=== PATIENT | female | born 1950 | race African-American/Black ===

== ENCOUNTER 2023-01-21 10:53 | Inpatient (IN) | payer OTHER ==
[2023-01-21] MEDS ORDERED: LABETALOL HCL 5 MG/1 ML (100MG/20 ML VIAL) IVPUSH ONE (12:07)
[2023-01-21] MEDS ORDERED: LABETALOL HCL 20 MG/4 ML VIAL ONE (12:16)
[2023-01-21 12:28] LABS: BASO % 0.5 % (0-2.0); EOS % 0.3 % (0-4.5); HEMATOCRIT 43.1 % (32.4-45.2); HEMOGLOBIN 14.6 GM/dL (10.7-15.3); LYMPH % 14.1 % (8-40); MCH 26.5 pg (25.7-33.7); MEAN CELL VOLUME 77.9 fl (80-96); MEAN PLT VOLUME 8.3 fl (7.5-11.1); MONO % 4.4 % (3.8-10.2); NEUT % 80.7 % (42.8-82.8); PLATELET COUNT 346 10^3/uL (134-434); RBC 5.53 M/mm3 (3.60-5.2); RDW 15.9 % (11.6-15.6); WHITE BLOOD COUNT 13.8 K/mm3 (4.0-10.0)
[2023-01-21 12:33] LABS: EPI CELLS 11 /uL (0-25.1); HYALINE CASTS 1 /uL (0-3.1); PH,URINE 5.5 (5.0-8.0); URINE APPEARANCE CLOUDY; URINE BACTERIA 614 /uL (0-1359); URINE BILIRUBIN NEGATIVE (NEGATIVE); URINE COLOR YELLOW; URINE GLUCOSE (UA) NEGATIVE (NEGATIVE); URINE KETONE NEGATIVE (NEGATIVE); URINE LEUK ESTERASE NEGATIVE (NEGATIVE); URINE NITRITE NEGATIVE (NEGATIVE); URINE PROTEIN 2+ (NEGATIVE); URINE RBC 27 /uL (0-23.9); URINE WBC 20 /uL (0-25.8)
[2023-01-21 12:41] LABS: INR 1.1 (0.83-1.09); PROTHROMBIN TIME (PATIENT) 12.7 SEC (9.7-13.0)
[2023-01-21 12:43] LABS: ACTIVATED PTT 27.5 SECONDS (25.2-36.5)
[2023-01-21 12:49] LABS: CHLORIDE 106 mmol/L (98-107); SODIUM 132 mmol/L (136-145)
[2023-01-21 12:51] LABS: BLOOD UREA NITROGEN 18.8 mg/dL (7-18); CALCIUM 8.7 mg/dL (8.5-10.1)
[2023-01-21 12:52] LABS: ALBUMIN 3.2 g/dl (3.4-5.0); CO2 28 mmol/L (21-32); GLUCOSE,RANDOM 109 mg/dL (74-106)
[2023-01-21 12:55] LABS: SGOT/AST 51 U/L (15-37); SGPT/ALT 19 U/L (13-61)
[2023-01-21 12:56] LABS: BILIRUBIN,TOTAL 0.7 mg/dL (0.2-1); TOT PROT 8.7 g/dl (6.4-8.2)
[2023-01-21 12:58] LABS: ALK PHOS 84 U/L (45-117)
[2023-01-21 13:04] LABS: ANION GAP -2 mmol/L (4-13); POTASSIUM 6.4 mmol/L (3.5-5.1)
[2023-01-21] MEDS ORDERED: LABETALOL HCL 200 MG TABLET (FP) PO ONE (13:25)
[2023-01-21] MEDS ORDERED: LABETALOL HCL 100 MG TABLET (FP) ONE (13:41)
[2023-01-21] MEDS ORDERED: TRIMETHOBENZAMIDE HCL 200MG/2ML INJ IM ONE ×2 (14:22→14:29)
[2023-01-21 15:29] LABS: POTASSIUM 3.5 mmol/L (3.5-5.1)
[2023-01-21 15:31] LABS: CALCIUM 8.4 mg/dL (8.5-10.1)
[2023-01-21 15:32] LABS: ALBUMIN 3.1 g/dl (3.4-5.0); BLOOD UREA NITROGEN 18.5 mg/dL (7-18); MAGNESIUM 2.1 mg/dL (1.8-2.4)
[2023-01-21 15:36] LABS: BILIRUBIN,TOTAL 0.6 mg/dL (0.2-1); TOT PROT 7.4 g/dl (6.4-8.2)
[2023-01-21 15:52] LABS: CREATININE 0.8 mg/dL (0.55-1.3)
[2023-01-22] MEDS ORDERED: hydrALAZINE HCL 20 MG/ML VIAL IVPUSH ONE (05:40)
[2023-01-22] MEDS ORDERED: hydrALAZINE HCL 20 MG/ML VIAL IVPUSH PRN (05:42)
[2023-01-22] MEDS ORDERED: LISINOPRIL 20 MG TABLET PO ONE (05:43)
[2023-01-22 07:44] LABS: BASO % 0.3 % (0-2.0); EOS % 0.2 % (0-4.5); HEMATOCRIT 38.8 % (32.4-45.2); LYMPH % 15.1 % (8-40); MCHC 33.4 g/dl (32.0-36.0); MEAN CELL VOLUME 77.8 fl (80-96); MEAN PLT VOLUME 8.5 fl (7.5-11.1); MONO % 4.6 % (3.8-10.2); NEUT % 79.8 % (42.8-82.8); PLATELET COUNT 287 10^3/uL (134-434); RBC 4.99 M/mm3 (3.60-5.2); RDW 15.6 % (11.6-15.6)
[2023-01-22 07:50] LABS: POTASSIUM 3.6 mmol/L (3.5-5.1)
[2023-01-22 07:54] LABS: CALCIUM 8.7 mg/dL (8.5-10.1)
[2023-01-22 07:55] LABS: ALBUMIN 3.2 g/dl (3.4-5.0); BLOOD UREA NITROGEN 20.4 mg/dL (7-18); MAGNESIUM 2.2 mg/dL (1.8-2.4)
[2023-01-22 07:58] LABS: CREATININE 0.8 mg/dL (0.55-1.3); PHOSPHOROUS 3.6 mg/dL (2.5-4.9)
[2023-01-22 07:59] LABS: BILIRUBIN,TOTAL 0.8 mg/dL (0.2-1)
[2023-01-22 08:00] LABS: TOT PROT 7.5 g/dl (6.4-8.2)
[2023-01-22] MEDS: amLODIPine BESYLATE 10 MG TABLET (FP) PO SCH (09:11)
[2023-01-22] MEDS: ENOXAPARIN NA (PORCINE) 40 MG/0.4 ML DISP.SYRIN SQ SCH (09:12)
[2023-01-22] MEDS ORDERED: hydrALAZINE HCL 20 MG/ML VIAL ONE (12:48)
[2023-01-22 23:36] VITALS: BMI 37.8
[2023-01-23 09:38] LABS: EOS % 0.6 % (0-4.5); HEMATOCRIT 37.9 % (32.4-45.2); HEMOGLOBIN 13.2 GM/dL (10.7-15.3); LYMPH % 22.4 % (8-40); MCH 26.9 pg (25.7-33.7); MCHC 34.7 g/dl (32.0-36.0); MEAN CELL VOLUME 77.6 fl (80-96); MEAN PLT VOLUME 8.6 fl (7.5-11.1); MONO % 5.9 % (3.8-10.2); NEUT % 71.1 % (42.8-82.8); PLATELET COUNT 275 10^3/uL (134-434); RBC 4.88 M/mm3 (3.60-5.2); RDW 15.8 % (11.6-15.6); WHITE BLOOD COUNT 10.7 K/mm3 (4.0-10.0)
[2023-01-23 10:13] LABS: POTASSIUM 3.7 mmol/L (3.5-5.1)
[2023-01-23] MEDS: amLODIPine BESYLATE 10 MG TABLET (FP) PO SCH (10:13)
[2023-01-23] MEDS: ENOXAPARIN NA (PORCINE) 40 MG/0.4 ML DISP.SYRIN SQ SCH (10:17)
[2023-01-23 10:23] LABS: CALCIUM 9.2 mg/dL (8.5-10.1)
[2023-01-23 10:24] LABS: ALBUMIN 3.2 g/dl (3.4-5.0); BLOOD UREA NITROGEN 24.7 mg/dL (7-18)
[2023-01-23 10:26] LABS: CREATININE 1.1 mg/dL (0.55-1.3)
[2023-01-23 10:27] LABS: TOT PROT 7.4 g/dl (6.4-8.2)
[2023-01-23 10:28] LABS: BILIRUBIN,TOTAL 0.7 mg/dL (0.2-1)
[2023-01-23] MEDS: LISINOPRIL 20 MG TABLET PO SCH (14:09)
[2023-01-24] MEDS: ASPIRIN 81 MG CHEWABLE TABLETS PO SCH (09:21)
[2023-01-24] MEDS: amLODIPine BESYLATE 10 MG TABLET (FP) PO SCH (09:21)
[2023-01-24] MEDS: LISINOPRIL 20 MG TABLET PO SCH (09:21)
[2023-01-24] MEDS: ENOXAPARIN NA (PORCINE) 40 MG/0.4 ML DISP.SYRIN SQ SCH ×2 (09:21→09:24)
[2023-01-24 09:37] LABS: BASO % 0.4 % (0-2.0); HEMATOCRIT 39.8 % (32.4-45.2); HEMOGLOBIN 13.3 GM/dL (10.7-15.3); LYMPH % 28.9 % (8-40); MCH 26.2 pg (25.7-33.7); MCHC 33.5 g/dl (32.0-36.0); MEAN CELL VOLUME 78.3 fl (80-96); MEAN PLT VOLUME 8.8 fl (7.5-11.1); MONO % 4.7 % (3.8-10.2); PLATELET COUNT 265 10^3/uL (134-434); RBC 5.08 M/mm3 (3.60-5.2); RDW 15.3 % (11.6-15.6); WHITE BLOOD COUNT 11.6 K/mm3 (4.0-10.0)
[2023-01-24 09:40] LABS: IRON SERUM 75 ug/dL (50-175); TOTAL IRON BINDING CAPACITY 241 ug/dL (250-450)
[2023-01-24 11:52] LABS: INR 1.12 (0.83-1.09)
[2023-01-24 14:08] LABS: ALBUMIN 3.2 g/dl (3.4-5.0); BILIRUBIN,TOTAL 0.8 mg/dL (0.2-1); BLOOD UREA NITROGEN 25.5 mg/dL (7-18); CALCIUM 8.8 mg/dL (8.5-10.1); CREATININE 1.1 mg/dL (0.55-1.3); MAGNESIUM 2.3 mg/dL (1.8-2.4); PHOSPHOROUS 3.8 mg/dL (2.5-4.9); POTASSIUM 3.6 mmol/L (3.5-5.1); TOT PROT 7.4 g/dl (6.4-8.2)
[2023-01-24] MEDS ORDERED: ATORVASTATIN CA 20 MG TABLET (FP) PO SCH (22:00)
[2023-01-25] MEDS: LISINOPRIL 20 MG TABLET PO SCH (09:44)
[2023-01-25] MEDS: ASPIRIN 81 MG CHEWABLE TABLETS PO SCH (09:45)
[2023-01-25] MEDS: amLODIPine BESYLATE 10 MG TABLET (FP) PO SCH (09:45)
[2023-01-25] MEDS ORDERED: HYDROCHLOROTHIAZIDE 12.5 MG CAPSULE (FP) PO SCH (10:00)
[2023-01-25 11:54] VITALS: RESP 18
[2023-01-25 12:21] LABS: BLOOD UREA NITROGEN 22.5 mg/dL (7-18); CALCIUM 9.3 mg/dL (8.5-10.1); CREATININE 0.9 mg/dL (0.55-1.3); POTASSIUM 3.9 mmol/L (3.5-5.1)
[2023-01-25 13:55] LABS: INR 1.11 (0.83-1.09); PROTHROMBIN TIME (PATIENT) 12.9 SEC (9.7-13.0)
[2023-01-25 13:58] LABS: HEMATOCRIT 37.6 % (32.4-45.2); HEMOGLOBIN 12.6 GM/dL (10.7-15.3); MCH 26.4 pg (25.7-33.7); MCHC 33.4 g/dl (32.0-36.0); MEAN CELL VOLUME 78.8 fl (80-96); MEAN PLT VOLUME 8.8 fl (7.5-11.1); PLATELET COUNT 256 10^3/uL (134-434); RBC 4.77 M/mm3 (3.60-5.2); RDW 15.5 % (11.6-15.6); WHITE BLOOD COUNT 11.4 K/mm3 (4.0-10.0)
[2023-01-25 14:54] VITALS: BP 157/87; PULSE 83; TEMP 98.3
== END 2023-01-25 16:32 | disposition home or self-care (01) | DRG 305 ==
LOC: JER 10:53 → JERBED 15:57 → J5S 01-22 21:16 → OBSVTOIN 01-24 08:09
PROVIDERS: ADMIT Internal Medicine; ATTEND Internal Medicine
DX: I16.0 Hypertensive urgency (principal); N63.10 Unspecified lump in the right breast, unspecified quadrant; R42 Dizziness and giddiness; E87.5 Hyperkalemia; R11.2 Nausea with vomiting, unspecified
CPT/HCPCS: 0241U-QW; 36415; 70450-TC; 71045-TC-FY; 71260-TC; 74177-TC; 76642-TC-RT; 80048; 80053; 80061; 81003; 82607; 82728; 82746; 83036; 83540; 83550; 83735; 84100; 84439; 84443; 84484; 85025; 85027; 85610; 85730; 93005; 93010; 93306-TC; 97116-GP; 97161-GP; 99285-25; G0378; Q9967

== ENCOUNTER → 2023-02-10 | Day surgery (SDC) | payer OTHER | END | disposition home or self-care (01) | LOC: JRADUS-SUR 09:34 | PROVIDERS: ATTEND Registered Nurse | PROC: 0H9T3ZX Drainage of Right Breast, Percutaneous Approach, Diagnostic (ICD-10-PCS; principal; 2023-02-10) | DX: C50.911 Malignant neoplasm of unspecified site of right female breast (principal) | CPT/HCPCS: 19083; 19084; 77065-TC; 77066-TC; 87899; A4648; G0279-TC ==

== ENCOUNTER 2023-04-07 04:12 | Day surgery (SDC) | payer OTHER ==
[2023-04-05 10:11] VITALS: BMI 36.9
[2023-04-07] MEDS ORDERED: BENZOIN/ALOE VERA/STORAX/TOLU 58 ML BOTTLE ONE (13:08)
[2023-04-07] MEDS ORDERED: BUPIVACAINE HCL/PF 0.5% (5MG/ML) 10 ML VIAL ONE ×2 (13:08→13:22)
[2023-04-07] MEDS ORDERED: LIDOCAINE 1%/EPI 1:100000 (20 ML MULTI DOSE VIAL) ONE (13:08)
[2023-04-07] MEDS ORDERED: PROPOFOL 40 ML ONE (13:46)
[2023-04-07] MEDS ORDERED: ONDANSETRON 4 MG/2 ML VIAL ONE (13:47)
[2023-04-07] MEDS ORDERED: LIDOCAINE HCL/PF 2% SDV 5ML VIAL ONE (13:47)
[2023-04-07] MEDS ORDERED: DEXAMETHASONE SOD PHOSPHATE 4 MG/1 ML VIAL ONE (13:47)
[2023-04-07] MEDS ORDERED: MIDAZOLAM HCL 2 MG/2 ML SINGLE DOSE VIAL ONE (13:48)
[2023-04-07] MEDS ORDERED: ceFAZolin SODIUM 1 GM VIAL ONE (14:21)
[2023-04-07] MEDS: ceFAZolin SODIUM 1 GM VIAL IVPB ONE (14:22)
[2023-04-07] MEDS: LIDOCAINE 1%/EPI 1:100000 (20 ML MULTI DOSE VIAL) IJ ONE (14:47)
[2023-04-07] MEDS: BUPIVACAINE HCL/PF 0.5% (5MG/ML) 10 ML VIAL IJ ONE (14:47)
[2023-04-07] MEDS ORDERED: ONDANSETRON 4 MG/2 ML VIAL IVPUSH PRN (15:15)
[2023-04-07] MEDS ORDERED: LACTATED RINGERS SOLUTION 1,000 ML IV SCH (15:15)
[2023-04-07 16:48] VITALS: RESP 16
[2023-04-07 17:36] VITALS: BP 185/91; PULSE 71; TEMP 97.6
== END 2023-04-07 17:35 | disposition home or self-care (01) ==
LOC: JASU-SURG 04:12
PROVIDERS: ATTEND Surgery Surgical Oncology
PROC: 0HBT0ZZ Excision of Right Breast, Open Approach (ICD-10-PCS; principal; 2023-04-07 13:30)
DX: C50.911 Malignant neoplasm of unspecified site of right female breast (principal)
CPT/HCPCS: 88307-TC; 94760

== ENCOUNTER 2023-05-02 13:08 | Inpatient (IN) | payer OTHER ==
[2023-05-02] MEDS ORDERED: ONDANSETRON *ODT* 4 MG TABLET ONE (15:20)
[2023-05-02 15:24] LABS: HEMATOCRIT 34.6 % (32.4-45.2); HEMOGLOBIN 11.7 GM/dL (10.7-15.3); MCH 26.9 pg (25.7-33.7); MCHC 33.7 g/dl (32.0-36.0); MEAN CELL VOLUME 79.8 fl (80-96); MEAN PLT VOLUME 8.2 fl (7.5-11.1); PLATELET COUNT 325 10^3/uL (134-434); RBC 4.34 M/mm3 (3.60-5.2); RDW 14.6 % (11.6-15.6); WHITE BLOOD COUNT 15.6 K/mm3 (4.0-10.0)
[2023-05-02] MEDS: ONDANSETRON 4 MG/2 ML VIAL IVPB ONE (16:00)
[2023-05-02] MEDS ORDERED: ONDANSETRON 4 MG/2 ML VIAL ONE ×2 (16:14→22:23)
[2023-05-02] MEDS ORDERED: morphine SULFATE 4 MG/ML VIAL ONE (16:14)
[2023-05-02 16:19] LABS: BASO % 0.1 % (0-2.0); EOS % 0.1 % (0-4.5); HEMATOCRIT 35.8 % (32.4-45.2); HEMOGLOBIN 12.1 GM/dL (10.7-15.3); MCH 26.8 pg (25.7-33.7); MCHC 33.8 g/dl (32.0-36.0); MEAN CELL VOLUME 79.5 fl (80-96); MEAN PLT VOLUME 8.3 fl (7.5-11.1); MONO % 2.2 % (3.8-10.2); NEUT % 90.6 % (42.8-82.8); PLATELET COUNT 327 10^3/uL (134-434); RDW 14.6 % (11.6-15.6); WHITE BLOOD COUNT 15.8 K/mm3 (4.0-10.0)
[2023-05-02] MEDS: ONDANSETRON 4 MG/2 ML VIAL IVPUSH ONE ×2 (16:31→22:35)
[2023-05-02] MEDS: morphine CARPU-JECT 4 MG/1 ML DISP.SYRIN IVPUSH ONE (16:31)
[2023-05-02 16:36] LABS: POTASSIUM 5.1 mmol/L (3.5-5.1)
[2023-05-02 16:38] LABS: CALCIUM 9.6 mg/dL (8.5-10.1)
[2023-05-02] MEDS: SODIUM CHLORIDE 0.9% 500 ML INFUS.BAG IV ONE (16:38)
[2023-05-02 16:39] LABS: ALBUMIN 3.4 g/dl (3.4-5.0); BLOOD UREA NITROGEN 15.4 mg/dL (7-18)
[2023-05-02 16:42] LABS: CREATININE 0.9 mg/dL (0.55-1.3)
[2023-05-02 16:43] LABS: BILIRUBIN,TOTAL 0.6 mg/dL (0.2-1); TOT PROT 8.7 g/dl (6.4-8.2)
[2023-05-02 16:45] LABS: ANISOCYTOSIS 0; MACROCYTOSIS 0
[2023-05-02] MEDS ORDERED: LISINOPRIL 20 MG TABLET ONE (20:55)
[2023-05-02] MEDS: LISINOPRIL 20 MG TABLET PO ONE (21:01)
[2023-05-02 21:12] LABS: EPI CELLS 4 /uL (0-25.1); HYALINE CASTS 0 /uL (0-3.1); URINE APPEARANCE CLEAR; URINE BACTERIA 147 /uL (0-1359); URINE BILIRUBIN NEGATIVE (NEGATIVE); URINE COLOR YELLOW; URINE GLUCOSE (UA) NEGATIVE (NEGATIVE); URINE KETONE NEGATIVE (NEGATIVE); URINE LEUK ESTERASE NEGATIVE (NEGATIVE); URINE NITRITE NEGATIVE (NEGATIVE); URINE PROTEIN 1+ (NEGATIVE); URINE RBC 39 /uL (0-23.9); URINE UROBILINOGEN 0.2 mg/dL (0.2-1.0); URINE WBC 1 /uL (0-25.8)
[2023-05-03] MEDS: DEXTROSE 5%-0.45% SALINE 1,000 ML IV SCH (02:47)
[2023-05-03] MEDS: CEFTRIAXONE 1 GM in DEXTROSE 5%-WATER - 50 ML IVPB ONE (03:37)
[2023-05-03] MEDS: INSULIN ASPART SLIDING SCALE (NOVOLOG) 1 VIAL SQ SCH (07:06)
[2023-05-03 08:38] LABS: BASO % 0.1 % (0-2.0); EOS % 0.1 % (0-4.5); HEMATOCRIT 31.8 % (32.4-45.2); HEMOGLOBIN 11.1 GM/dL (10.7-15.3); LYMPH % 10.4 % (8-40); MCH 27.6 pg (25.7-33.7); MCHC 34.9 g/dl (32.0-36.0); MEAN CELL VOLUME 79.1 fl (80-96); MEAN PLT VOLUME 8.1 fl (7.5-11.1); MONO % 4.3 % (3.8-10.2); NEUT % 85.1 % (42.8-82.8); PLATELET COUNT 321 10^3/uL (134-434); RBC 4.03 M/mm3 (3.60-5.2); RDW 14.4 % (11.6-15.6); WHITE BLOOD COUNT 13.8 K/mm3 (4.0-10.0)
[2023-05-03 09:07] LABS: POTASSIUM 3.7 mmol/L (3.5-5.1)
[2023-05-03] MEDS: TRIMETHOBENZAMIDE HCL 200MG/2ML INJ IM PRN (09:07)
[2023-05-03] MEDS: NIFEdipine E.R. 30 MG TABLET PO SCH (09:09)
[2023-05-03] MEDS: ENOXAPARIN NA (PORCINE) 40 MG/0.4 ML DISP.SYRIN SQ SCH (09:10)
[2023-05-03] MEDS: LISINOPRIL 20 MG TABLET PO SCH (09:10)
[2023-05-03] MEDS: HYDROCHLOROTHIAZIDE 12.5 MG CAPSULE (FP) PO SCH (09:10)
[2023-05-03 09:20] LABS: BLOOD UREA NITROGEN 13.8 mg/dL (7-18); CALCIUM 9.4 mg/dL (8.5-10.1); MAGNESIUM 2.1 mg/dL (1.8-2.4)
[2023-05-03 09:23] LABS: CREATININE 0.8 mg/dL (0.55-1.3)
[2023-05-03 09:24] LABS: PHOSPHOROUS 3.6 mg/dL (2.5-4.9)
[2023-05-03 09:25] LABS: BILIRUBIN,TOTAL 0.4 mg/dL (0.2-1); TOT PROT 7.7 g/dl (6.4-8.2)
[2023-05-03] MEDS ORDERED: NIFEdipine E.R. 30 MG TABLET PO SCH (10:00)
[2023-05-03] MEDS: POLYETHYLENE GLYCOL (HEALTHYLAX) 3350 17 GM PACKET PO SCH (10:31)
[2023-05-03] MEDS: PANTOPRAZOLE SODIUM 40 MG VIAL IVPUSH SCH (15:49)
[2023-05-03] MEDS: METOCLOPRAMIDE HCL INJECTION 10 MG/2 ML VIAL IVPUSH PRN (16:38)
[2023-05-03] MEDS: LACTATED RINGERS SOLUTION 1,000 ML/1,000 ML INFUS.BAG IV SCH (19:51)
[2023-05-03] MEDS: ASPIRIN 325 MG TABLET PO ONE (20:23)
[2023-05-03] MEDS: ASPIRIN 325 MG ENTERIC COATED TABLET (FP) PO ONE (20:23)
[2023-05-03] MEDS: ATORVASTATIN CA 80 MG TABLET (FP) PO SCH (22:32)
[2023-05-04 08:16] LABS: BASO % 0.6 % (0-2.0); EOS % 0.5 % (0-4.5); HEMATOCRIT 33.7 % (32.4-45.2); HEMOGLOBIN 11.5 GM/dL (10.7-15.3); LYMPH % 17.2 % (8-40); MCHC 34.2 g/dl (32.0-36.0); MEAN PLT VOLUME 8.2 fl (7.5-11.1); MONO % 4.4 % (3.8-10.2); NEUT % 77.3 % (42.8-82.8); PLATELET COUNT 318 10^3/uL (134-434); RBC 4.27 M/mm3 (3.60-5.2); RDW 14.5 % (11.6-15.6); WHITE BLOOD COUNT 12.6 K/mm3 (4.0-10.0)
[2023-05-04 08:33] LABS: POTASSIUM 3.5 mmol/L (3.5-5.1)
[2023-05-04 08:39] LABS: MAGNESIUM 1.9 mg/dL (1.8-2.4)
[2023-05-04 08:40] LABS: CALCIUM 9.6 mg/dL (8.5-10.1); CREATININE 0.8 mg/dL (0.55-1.3)
[2023-05-04 08:41] LABS: BLOOD UREA NITROGEN 11.9 mg/dL (7-18)
[2023-05-04 08:42] LABS: TOT PROT 7.6 g/dl (6.4-8.2)
[2023-05-04 08:45] LABS: BILIRUBIN,TOTAL 0.6 mg/dL (0.2-1)
[2023-05-04] MEDS: ASPIRIN COATED 81 MG TABLET.EC PO SCH (09:25)
[2023-05-04] MEDS: AMPICILLIN NA/SULBACTAM NA 3 GM in DEXTROSE 5%-WATER 100 ML IVPB SCH (18:47)
[2023-05-04] MEDS: CLOPIDOGREL BISULFATE 75 MG TABLET (FP) PO SCH (22:27)
[2023-05-05 07:36] LABS: HEMATOCRIT 34.3 % (32.4-45.2); HEMOGLOBIN 11.6 GM/dL (10.7-15.3); MCHC 33.7 g/dl (32.0-36.0); MEAN CELL VOLUME 79.9 fl (80-96); MEAN PLT VOLUME 8.1 fl (7.5-11.1); PLATELET COUNT 324 10^3/uL (134-434); RBC 4.29 M/mm3 (3.60-5.2); RDW 14.2 % (11.6-15.6); WHITE BLOOD COUNT 12.1 K/mm3 (4.0-10.0)
[2023-05-05 07:48] LABS: POTASSIUM 3.4 mmol/L (3.5-5.1)
[2023-05-05 08:01] LABS: BLOOD UREA NITROGEN 14.3 mg/dL (7-18); MAGNESIUM 2.2 mg/dL (1.8-2.4)
[2023-05-05 08:03] LABS: CALCIUM 9.3 mg/dL (8.5-10.1)
[2023-05-05 08:04] LABS: CREATININE 0.8 mg/dL (0.55-1.3); PHOSPHOROUS 3.4 mg/dL (2.5-4.9); TOT PROT 7.5 g/dl (6.4-8.2)
[2023-05-05 08:05] LABS: BILIRUBIN,TOTAL 0.7 mg/dL (0.2-1)
[2023-05-05] MEDS: amLODIPine BESYLATE 10 MG TABLET (FP) PO SCH (09:57)
[2023-05-05] MEDS: ASPIRIN COATED 81 MG TABLET.EC PO SCH (09:57)
[2023-05-05] MEDS: POTASSIUM CHLORIDE ORAL LIQUID 20 MEQ/15 ML PO ONE (16:04)
[2023-05-06 07:20] LABS: HEMATOCRIT 34.3 % (32.4-45.2); HEMOGLOBIN 11.9 GM/dL (10.7-15.3); MCH 27.5 pg (25.7-33.7); MCHC 34.8 g/dl (32.0-36.0); MEAN CELL VOLUME 79.1 fl (80-96); PLATELET COUNT 299 10^3/uL (134-434); RBC 4.34 M/mm3 (3.60-5.2); RDW 14.3 % (11.6-15.6)
[2023-05-06 07:40] LABS: POTASSIUM 3.6 mmol/L (3.5-5.1)
[2023-05-06 07:46] LABS: ALBUMIN 2.8 g/dl (3.4-5.0); CALCIUM 9.1 mg/dL (8.5-10.1)
[2023-05-06 07:47] LABS: BLOOD UREA NITROGEN 19.6 mg/dL (7-18); MAGNESIUM 2.1 mg/dL (1.8-2.4)
[2023-05-06 07:50] LABS: PHOSPHOROUS 3.7 mg/dL (2.5-4.9)
[2023-05-06 07:51] LABS: BILIRUBIN,TOTAL 0.7 mg/dL (0.2-1); TOT PROT 7.4 g/dl (6.4-8.2)
[2023-05-06] MEDS: HYDROCHLOROTHIAZIDE 25 MG TABLET (FP) PO SCH (10:59)
[2023-05-06] MEDS: ONDANSETRON 4 MG/2 ML VIAL IVPUSH ONE (11:10)
[2023-05-06] MEDS: HYDROCHLOROTHIAZIDE 50 MG TABLET PO SCH (15:30)
[2023-05-06 15:42] VITALS: BMI 33.8
[2023-05-07 07:12] LABS: HEMATOCRIT 36.3 % (32.4-45.2); HEMOGLOBIN 12.1 GM/dL (10.7-15.3); MCH 26.8 pg (25.7-33.7); MCHC 33.3 g/dl (32.0-36.0); MEAN CELL VOLUME 80.7 fl (80-96); MEAN PLT VOLUME 8.3 fl (7.5-11.1); PLATELET COUNT 316 10^3/uL (134-434); RBC 4.51 M/mm3 (3.60-5.2); RDW 14.1 % (11.6-15.6); WHITE BLOOD COUNT 13.1 K/mm3 (4.0-10.0)
[2023-05-07 07:25] LABS: POTASSIUM 3.6 mmol/L (3.5-5.1)
[2023-05-07 07:29] LABS: BLOOD UREA NITROGEN 20.5 mg/dL (7-18); CALCIUM 9.4 mg/dL (8.5-10.1); MAGNESIUM 2.3 mg/dL (1.8-2.4)
[2023-05-07 07:33] LABS: PHOSPHOROUS 4.5 mg/dL (2.5-4.9)
[2023-05-07 07:34] LABS: BILIRUBIN,TOTAL 0.7 mg/dL (0.2-1)
[2023-05-07] MEDS: POLYETHYLENE GLYCOL (HEALTHYLAX) 3350 17 GM PACKET PO SCH (10:31)
[2023-05-07] MEDS: ENOXAPARIN NA (PORCINE) 40 MG/0.4 ML DISP.SYRIN SQ SCH (10:31)
[2023-05-07] MEDS: LISINOPRIL 20 MG TABLET PO SCH (10:31)
[2023-05-07] MEDS: HYDROCHLOROTHIAZIDE 25 MG TABLET (FP) PO SCH (10:31)
[2023-05-07] MEDS: PANTOPRAZOLE SODIUM 40 MG VIAL IVPUSH SCH (10:32)
[2023-05-08 08:07] LABS: HEMATOCRIT 33.8 % (32.4-45.2); HEMOGLOBIN 11.8 GM/dL (10.7-15.3); MCH 27.6 pg (25.7-33.7); MCHC 34.9 g/dl (32.0-36.0); MEAN PLT VOLUME 8.4 fl (7.5-11.1); PLATELET COUNT 302 10^3/uL (134-434); RBC 4.28 M/mm3 (3.60-5.2); RDW 13.9 % (11.6-15.6); WHITE BLOOD COUNT 13.1 K/mm3 (4.0-10.0)
[2023-05-08 08:23] LABS: POTASSIUM 3.6 mmol/L (3.5-5.1)
[2023-05-08 08:25] LABS: BLOOD UREA NITROGEN 26.7 mg/dL (7-18); CALCIUM 9.3 mg/dL (8.5-10.1)
[2023-05-08 08:26] LABS: MAGNESIUM 2.4 mg/dL (1.8-2.4)
[2023-05-08 08:28] LABS: PHOSPHOROUS 4.5 mg/dL (2.5-4.9)
[2023-05-08 08:29] LABS: CREATININE 1.1 mg/dL (0.55-1.3)
[2023-05-08 08:30] LABS: BILIRUBIN,TOTAL 0.7 mg/dL (0.2-1); TOT PROT 7.6 g/dl (6.4-8.2)
[2023-05-08] MEDS: ONDANSETRON 4 MG/2 ML VIAL IVPUSH PRN (20:45)
[2023-05-09 07:31] LABS: POTASSIUM 3.3 mmol/L (3.5-5.1)
[2023-05-09 07:33] LABS: CALCIUM 9.4 mg/dL (8.5-10.1)
[2023-05-09 07:34] LABS: BLOOD UREA NITROGEN 28.9 mg/dL (7-18); MAGNESIUM 2.5 mg/dL (1.8-2.4)
[2023-05-09 07:37] LABS: CREATININE 1.3 mg/dL (0.55-1.3); PHOSPHOROUS 4.8 mg/dL (2.5-4.9)
[2023-05-09 08:22] LABS: BASO % 0.2 % (0-2.0); HEMATOCRIT 34.7 % (32.4-45.2); HEMOGLOBIN 11.7 GM/dL (10.7-15.3); LYMPH % 20.2 % (8-40); MCHC 33.6 g/dl (32.0-36.0); MEAN CELL VOLUME 80.4 fl (80-96); MEAN PLT VOLUME 8.6 fl (7.5-11.1); MONO % 5.9 % (3.8-10.2); NEUT % 72.7 % (42.8-82.8); PLATELET COUNT 282 10^3/uL (134-434); RBC 4.32 M/mm3 (3.60-5.2); RDW 14.1 % (11.6-15.6); WHITE BLOOD COUNT 13.4 K/mm3 (4.0-10.0)
[2023-05-09] MEDS: POTASSIUM CHLORIDE TABS 20 MEQ TABLET.ER (FP) PO ONE (08:28)
[2023-05-09] MEDS: POTASSIUM CHLORIDE ORAL LIQUID 20 MEQ/15 ML PO ONE (08:28)
[2023-05-09] MEDS: POTASSIUM PHOSPHATE 30 MM in SODIUM CHLORIDE 500 ML IVPB ONE (09:43)
[2023-05-09] MEDS: METOCLOPRAMIDE HCL INJECTION 10 MG/2 ML VIAL IVPUSH PRN (17:56)
[2023-05-10 08:18] LABS: POTASSIUM 3.9 mmol/L (3.5-5.1)
[2023-05-10 08:35] LABS: BLOOD UREA NITROGEN 26.3 mg/dL (7-18); CALCIUM 9.6 mg/dL (8.5-10.1)
[2023-05-10 08:36] LABS: MAGNESIUM 2.5 mg/dL (1.8-2.4)
[2023-05-10 08:38] LABS: CREATININE 1.1 mg/dL (0.55-1.3); PHOSPHOROUS 3.9 mg/dL (2.5-4.9)
[2023-05-10 08:52] LABS: BASO % 0.3 % (0-2.0); EOS % 1.3 % (0-4.5); HEMATOCRIT 33.6 % (32.4-45.2); HEMOGLOBIN 11.5 GM/dL (10.7-15.3); LYMPH % 21.9 % (8-40); MCH 27.2 pg (25.7-33.7); MCHC 34.3 g/dl (32.0-36.0); MEAN CELL VOLUME 79.5 fl (80-96); MEAN PLT VOLUME 8.6 fl (7.5-11.1); MONO % 5.3 % (3.8-10.2); NEUT % 71.2 % (42.8-82.8); PLATELET COUNT 274 10^3/uL (134-434); RBC 4.22 M/mm3 (3.60-5.2); RDW 13.9 % (11.6-15.6); WHITE BLOOD COUNT 12.1 K/mm3 (4.0-10.0)
[2023-05-10 09:24] VITALS: RESP 18
[2023-05-10] MEDS ORDERED: PANTOPRAZOLE 40 MG TABLET PO SCH (13:25)
[2023-05-10 15:53] VITALS: BP 151/72; PULSE 63; TEMP 99
[2023-05-11] MEDS ORDERED: PANTOPRAZOLE 40 MG TABLET PO SCH (10:00)
== END 2023-05-10 16:00 | DRG 65 ==
LOC: JER 13:08 → JERBED 20:34 → J6S 05-03 01:33 → OBSVTOIN 05-03 19:47 → J4W 05-04 01:06
PROVIDERS: ADMIT Internal Medicine; ATTEND Internal Medicine
DX: I63.89 Other cerebral infarction (principal); I44.2 Atrioventricular block, complete; E78.5 Hyperlipidemia, unspecified; K44.9 Diaphragmatic hernia without obstruction or gangrene; D72.829 Elevated white blood cell count, unspecified; I12.9 Hypertensive chronic kidney disease with stage 1 through stage 4 chronic kidney disease, or unspecified chronic kidney disease; N18.9 Chronic kidney disease, unspecified; R73.03 Prediabetes; K59.00 Constipation, unspecified; I16.0 Hypertensive urgency; R93.0 Abnormal findings on diagnostic imaging of skull and head, not elsewhere classified; R00.1 Bradycardia, unspecified; R42 Dizziness and giddiness; E86.0 Dehydration; E86.1 Hypovolemia; C50.911 Malignant neoplasm of unspecified site of right female breast; K29.60 Other gastritis without bleeding
CPT/HCPCS: 0241U-QW; 36415; 70450-TC; 70496-TC; 70498-TC; 70551-TC; 74176-TC; 74240-TC-FY; 76705-TC; 80048; 80053; 80061; 81003; 82533; 82570; 82728; 82962; 83036; 83540; 83550; 83605; 83690; 83735; 84100; 84156; 84484; 85025; 85027; 86140; 87040; 87077; 87086; 93005; 93010; 97116-GP; 97162-GP; 99285-25; G0378; Q9967